=== PATIENT | male | born 1975 | race Two or more races ===

== ENCOUNTER 2022-09-19 05:50 | Day surgery (SDC) | payer OTHER ==
[~2022-09-19] VITALS: Ht 175.3 cm; Wt 72.6 kg
== END 2022-09-19 11:40 | disposition home or self-care (01) ==
LOC: CIR.AMB 05:50
PROVIDERS: ATTEND Orthopaedic Surgery
DX: M25.812 Other specified joint disorders, left shoulder (principal); M24.112 Other articular cartilage disorders, left shoulder; F12.90 Cannabis use, unspecified, uncomplicated; I95.9 Hypotension, unspecified; E11.9 Type 2 diabetes mellitus without complications; Z87.891 Personal history of nicotine dependence; M75.122 Complete rotator cuff tear or rupture of left shoulder, not specified as traumatic